=== PATIENT | female | born 1995 | race Caucasian/White ===

== ENCOUNTER 2020-05-01 17:15 | Outpatient (CLI) | payer BC, SELFPAY ==
--- NOTE | ~2020-05-01 | MR_ITS ---
EXAMINATION: MR cervical spine wo con DATE: 05/01/2020 17:55 INDICATION: Neck pain. TECHNIQUE: Magnetic resonance imaging (MRI) of the cervical spine was performed without intravenous c ontrast. Sequences included sagittal T2-weighted FSE, sagittal STIR FSE, sagittal T1-weighted FSE, ax ial MERGE, and axial T2-weighted FSE. COMPARISON: None FINDINGS: There is mild kyphosis of cervical spine. There is 10 degrees levoscoliosis of cervicothora cic spine. Vertebral body heights and intervertebral disc heights are normal. The following disc leve ls are specifically discussed: C2-C3: The disc does not extend beyond the endplate margin. There is no uncovertebral joint osteoarth ritis. There is mild bilateral facet joint osteoarthritis. There is no neural foraminal stenosis. The re is no central canal stenosis. C3-C4 through C6-C7: The disc does not extend beyond the endplate margin. There is no uncovertebral j oint osteoarthritis. There is no facet joint osteoarthritis. There is no neural foraminal stenosis. T here is no central canal stenosis. C7-T1: The disc does not extend beyond the endplate margin. There is no uncovertebral joint osteoarth ritis. There is mild bilateral facet joint osteoarthritis. There is no neural foraminal stenosis. The re is no central canal stenosis. IMPRESSION: 1. 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 2. Cervicothoracic levoscoliosis. Reviewed, dictated and finalized at location A.
== END 2020-05-01 17:16 | disposition home or self-care (01) ==
LOC: ANHIMG 17:16
PROVIDERS: Visit Provider Nurse Practitioner Family
DX: M54.2 Cervicalgia (principal)
CPT/HCPCS: 72141